=== PATIENT | female | born 1975 | race Caucasian/White ===

== ENCOUNTER 2025-03-22 09:47 | Outpatient (CLI) | payer OTHER ==
[~2025-03-22 09:47] MED LIST: ATABEX PRENATAL1 TAB; FOLIC ACID0.4 MG; OSEL75CA PO; ZYNCOF 20-400120 ML PO
== END 2025-03-22 09:49 | disposition home or self-care (01) ==
LOC: SONOGRAMA 09:47
PROVIDERS: ATTEND Specialist/Technologist, Other Nephrology
DX: R10.9 Unspecified abdominal pain (principal); N18.30 Chronic kidney disease, stage 3 unspecified; R31.9 Hematuria, unspecified; N19 Unspecified kidney failure